=== PATIENT | female | born 1965 ===

== ENCOUNTER → 2023-03-27 | Outpatient (CLI) | payer OTHER | END | disposition home or self-care (01) | LOC: RAD 14:02 | PROVIDERS: ATTEND Colon & Rectal Surgery | DX: K59.09 Other constipation (principal) ==

== ENCOUNTER 2023-03-31 07:24 | Emergency (ER) | payer OTHER ==
[~2023-03-31] VITALS: Ht 144.8 cm; Wt 49.9 kg
[2023-03-31] MEDS ORDERED: TOPROL XL25 M1 PO (07:39)
== END 2023-03-31 10:34 | disposition home or self-care (01) ==
LOC: ER 07:24
DX: J06.9 Acute upper respiratory infection, unspecified (principal); Z20.822 Contact with and (suspected) exposure to COVID-19; Z91.040 Latex allergy status